=== PATIENT | male | born 1970 | race Caucasian/White ===

== ENCOUNTER 2016-07-04 11:09 | Day surgery (SDC) | payer OTHER ==
[~2016-07-04 11:09] MED LIST: CEFAZOLIN SODIUM 2 GRAM PREMIX 100 ML IV PRN
[2016-07-04] MEDS ORDERED: IV START KIT ONE (11:12)
[2016-07-04] MEDS ORDERED: LACTATED RINGERS 1,000 ML ONE (11:12)
[2016-07-04] MEDS ORDERED: CEFAZOLIN SODIUM 2 GRAM PREMIX 100 ML IV ONE (11:12)
[2016-07-04] MEDS ORDERED: MIDAZOLAM HCL 5 MG/5 ML VIAL ONE (12:39)
[2016-07-04] MEDS ORDERED: FENTANYL 5 ML ONE (12:39)
[2016-07-04] MEDS ORDERED: BUPIVACAINE 0.5% (PRES FREE) 30 ML VIAL ONE (12:47)
[2016-07-04] MEDS ORDERED: CEFAZOLIN SODIUM 1,000 MG VIAL ONE (12:47)
[2016-07-04] MEDS ORDERED: SODIUM CHLORIDE 0.9% FLUSH 10 ML ONE (12:47)
[2016-07-04] MEDS ORDERED: BUPIVACAINE 0.5% W/EPI SDV 30 ML VIAL ONE (12:47)
[2016-07-04] MEDS ORDERED: PROPOFOL 20 ML IV ONE (12:48)
[2016-07-04] MEDS ORDERED: DEXAMETHASONE SOD PHOS 4 MG/1 ML VIAL ONE (12:54)
[2016-07-04] MEDS ORDERED: ONDANSETRON 4 MG/2ML 2 ML VIAL ONE (12:54)
[2016-07-04] MEDS ORDERED: PROMETHAZINE HCL 25 MG/ML VIAL IM PRN (13:18)
[2016-07-04] MEDS ORDERED: NALOXONE HCL 0.4 MG/ML VIAL IV PRN (13:18)
[2016-07-04] MEDS ORDERED: HYDROMORPHONE HCL 1 MG/ML SYRINGE IV PRN (13:18)
[2016-07-04] MEDS ORDERED: FENTANYL 100 MCG/2 ML VIAL IV PRN (13:18)
[2016-07-04] MEDS ORDERED: ATROPINE SULFATE 0.4 MG/1 ML VIAL IV PRN (13:18)
[2016-07-04] MEDS ORDERED: ONDANSETRON 4 MG/2ML 2 ML VIAL IV PRN ×2 (13:18→14:39)
[2016-07-04] MEDS ORDERED: LACTATED RINGERS 1,000 ML IV SCH (13:30)
[2016-07-04] MEDS ORDERED: OXYCODONE/ACETAMINOPHEN 5/325 MG TABLET PO PRN (14:39)
[2016-07-04] MEDS ORDERED: MORPHINE SULFATE 2 MG/ML SYRINGE IV PRN (14:39)
[2016-07-04] MEDS ORDERED: KETOROLAC TROMETHAMINE 30 MG/ML 1 ML VIAL IV PRN (14:39)
[2016-07-04] MEDS ORDERED: MORPHINE SULFATE 4 MG/ML SYRINGE IV PRN (14:50)
[2016-07-04] MEDS ORDERED: MORPHINE SULFATE 10 MG/ML SYRINGE IV PRN (14:54)
[2016-07-04] MEDS ORDERED: OXYCODONE/ACETAMINOPHEN 5/325 MG TABLET ONE (15:44)
--- NOTE | 2016-07-04 21:51 | OP ---
LYNNE GREWAL [id number] DATE OF SURGERY: 07/04/2016 PREOPERATIVE DIAGNOSIS: Right inguinal hernia, umbilical hernia. POSTOPERATIVE DIAGNOSIS: Right inguinal hernia, umbilical hernia. PROCEDURE: RIGHT INGUINAL HERNIA REPAIR WITH MESH, PLUG AND PATCH, AND UMBILICAL HERNIA REPAIR. SURGEON: Dr. Antoine Grimes [facility] [employer] WORKER: JAMEE Pollack ANESTHESIA: Raul Monae CRNA, general anesthesia. INDICATION: This is a 46-year-old male who presents for elective repair of a right inguinal hernia, as well as an umbilical hernia. DESCRIPTION: After informed consent he was taken to the operating room where he was laid supine on the OR table. General anesthesia was administered. The right groin and lower abdomen are prepped and draped in a sterile fashion. Local anesthetic was administered in the right groin. An incision was made. Electrocautery was used to divide the subcutaneous fat and Noah's fascia. The external oblique was opened with a knife and Metzenbaum scissors and a fiber-splitting technique. The cord structures were inserted at the level of the pubic tubercle with a [place] drain. There was some mild generalized weakness within the floor of the canal. I looked to find an indirect sac and did not find one. There was a cord lipoma that I dissected free to the internal ring, and I excised this at the internal ring. To the floor of the canal, I scored this with electrocautery to get into a preperitoneal plane. A large mesh plug was placed. This was secured with interrupted 2-0 Vicryls. A flat piece of mesh was then placed across the floor of the canal. The medial aspect overlapped the pubic tubercle. A slit was cut laterally and the tails were secured outside of the internal ring. The mesh was placed up beneath the external oblique. The wound was irrigated. We appeared to have adequate hemostasis. The external obliques were reapproximated with a running 2-0 Vicryl. Additional local anesthetic was administered below the external oblique. Noah's fascia was reapproximated with 3-0 Vicryl and skin was closed with a running subcuticular 4-0 MONOCRYL. Mastisol and Steri-Strips were placed. Local anesthetic was administered around the umbilicus. A curvilinear incision was made. We dissected down through the subcutaneous fat to the fascia. The hernia sac was dissected free circumferentially. It was from the umbilical skin with Metzenbaum scissors. The hernia sac was excised to the level of the fascia using electrocautery. The actual defect was quite small. It would not accommodate a piece of mesh. I chose to close it primarily using interrupted 0-Nurolon. This was done in a transverse fashion with three sutures. The wound was irrigated. We appeared to have adequate hemostasis. The umbilical skin was sutured down near the fascia with some 3-0 Vicryl. The subcutaneous tissue was brought together with 3-0 Vicryl and the skin was closed with a running subcuticular 4-0 MONOCRYL. Mastisol and Steri-Strips were placed and all dressings were applied to both incisions. He tolerated the procedure and was taken to the recovery room in stable condition. Note was made that needle, instrument and lap counts were reported as correct at the time of closure. cc: Dr. Tameka Gaytan
== END 2016-07-04 16:52 | disposition home or self-care (01) ==
LOC: SDC 11:09
PROVIDERS: ATTEND Surgery
PROC: 0YU50JZ Supplement Right Inguinal Region with Synthetic Substitute, Open Approach (ICD-10-PCS; principal; 2016-07-04)
PROC: 0WQF0ZZ Repair Abdominal Wall, Open Approach (ICD-10-PCS; 2016-07-04)
DX: K40.90 Unilateral inguinal hernia, without obstruction or gangrene, not specified as recurrent (principal); K42.9 Umbilical hernia without obstruction or gangrene; Z72.0 Tobacco use; F12.90 Cannabis use, unspecified, uncomplicated; S76.212A Strain of adductor muscle, fascia and tendon of left thigh, initial encounter; S76.211A Strain of adductor muscle, fascia and tendon of right thigh, initial encounter
CPT/HCPCS: 49505; 49585; J0690 ×2; J3010; J1100; A9270; J2250; J2405; J7120